=== PATIENT | female | born 1955 | race Caucasian/White ===

== ENCOUNTER 2019-10-05 16:25 | Emergency (ER) | payer OTHER ==
[~2019-10-05] VITALS: Ht 160 cm; Wt 81.6 kg
--- NOTE | 2019-10-05 16:35 | NUR ---
PT AMBULATED TO ER BED 04
[2019-10-05 16:36] VITALS: BP 119/55
--- NOTE | 2019-10-05 16:39 | NUR ---
64 Y/O F C/C LLE CELLULITIS X3 WEEKS. PER PT JUST MOVED AND HAS NO PCP IN THE AREA. HAS HAD PREVIOUS HX OF CELLULITIS IN THE PAST, HAVE RESOLVED WITH ABX. PER PT OPEN WOUND IN THE AREA DENIES HX OF DM. ALLERGIES PNC. NO HX. NO RX. NO N/V/D. SIDE RAIL X1. PAIN 01/24.
[2019-10-05 17:34] VITALS: BP 119/55
--- NOTE | 2019-10-05 17:34 | NUR ---
Patient discharged with v/s stable. Written and verbal after care instructions given and explained. Patient alert, oriented and verbalized understanding of instructions. Ambulatory with steady gait. All questions addressed prior to discharge. ID band removed. Patient advised to follow up with PMD. Rx of KEFLEX,BACTRIM given. Patient educated on indication of medication including possible reaction and side effects. Opportunity to ask questions provided and answered.
== END 2019-10-05 17:34 | disposition home or self-care (01) ==
LOC: MED 16:25
DX: L03.116 Cellulitis of left lower limb (principal); F17.210 Nicotine dependence, cigarettes, uncomplicated; Z88.0 Allergy status to penicillin; Z71.6 Tobacco abuse counseling
CPT/HCPCS: 99283

== ENCOUNTER 2019-11-04 02:44 | Emergency (ER) | payer OTHER ==
[~2019-11-04] VITALS: Ht 160 cm; Wt 74.8 kg
[2019-11-04 02:45] VITALS: BP 136/77
--- NOTE | 2019-11-04 02:45 | NUR ---
TO BED # 04 AMBULATORY
[2019-11-04 02:50] VITALS: BP 136/77
--- NOTE | 2019-11-04 02:57 | NUR ---
PT TAKEN TO BED 3
[2019-11-04] MEDS ORDERED: VANCOMYCIN 1,000 MG in DEXTROSE 5% 250 ML IV ONE (03:00)
--- NOTE | 2019-11-04 03:00 | NUR ---
Lilli bentley in [facility] - 11/04/19 at 0411 by AYSHA SEEN AND EXAMINED BY RISA WITH ORDERS AND CARRIED OUT
--- NOTE | 2019-11-04 03:10 | NUR ---
PATIENT REFUSED BLOOD DRAW AND IV ACCESS, ERMD NOTED
--- NOTE | 2019-11-04 04:00 | NUR ---
PATIENT LEFT WITHOUT BEING SEEN BY DR. SILVEIRA. NO FURTHER CARE PROVIDED FOR PATIENT.
== END 2019-11-04 04:00 | disposition left against medical advice (07) ==
LOC: MED 02:44
DX: Z48.00 Encounter for change or removal of nonsurgical wound dressing (principal); Z53.21 Procedure and treatment not carried out due to patient leaving prior to being seen by health care provider